=== PATIENT | male | born 1940 | race Caucasian/White ===

== ENCOUNTER 2017-10-08 15:48 | Inpatient (IN) ==
[2017-10-08] MEDS ORDERED: Aspirin 81 MG TAB.CHEW PO STA (15:58)
--- NOTE | 2017-10-08 16:02 | Emergency Department Note ---
Disposition Clinical Impression: Elevated troponin, EKG abnormality Chest pain Qualifiers: Chest pain type: unspecified Qualified Code(s): R07.9 - Chest pain, unspecified Disposition: Admitted As Inpatient Condition: Good Time of Disposition: 19:01 Chest Pain HPI - General Chief Complaint: ED Chest Pain Stated Complaint: Elevated trop, CP x4 days Time Seen by Provider: 10/08/17 15:57 Source: patient Limitations: no limitations Vital Signs Reviewed: Yes Nursing Notes Reviewed: Yes - History of Present Illness HPI Narrative: Patient had chest pain 4 days ago in the center of his chest. Did not radiate anywhere. He also had a GI upset at that time. States that [place] States that that has since resolved. His chest pain resolved on its own as well. He has not had chest pain and over a day. However [facility] was found to have an elevated troponin and ST elevation noted in anterior septal leads. He was sent here for further evaluation. Severity scale (1-10): 0 - Related Data Home Medications Medication Instructions Recorded Confirmed No Known Home Drugs 10/08/17 10/08/17 Allergies Allergy/AdvReac Type Severity Reaction Status Date / Time Penicillins [PCN] AdvReac Rash Verified 10/08/17 16:57 All systems ED: reviewed and negative except as stated. Constitutional: Denies: fever, chills ENT ED: Denies: congestion Cardiovascular: Denies: chest pain, palpitations, syncope Respiratory: Denies: cough, dyspnea Gastrointestinal: Reports: nausea (Previously not today.), vomiting (Previously not today.), diarrhea (Previously noted.). Denies: abdominal pain Genitourinary: Denies: urgency, dysuria, frequency Musculoskeletal: Denies: back pain, neck pain Integumentary: Denies: rash, abrasion Neurological: Denies: headache, weakness Chest Pain PMH - Past Medical History Medical history: Reports: no medical history Psychiatric history: Reports: no psych history - Social History Smoking Status: Former smoker Alcohol use: Reports: none Drug use: Reports: none Physical Exam - General Limitations: no limitations General appearance: alert, in no apparent distress - Head Head exam: atraumatic, normocephalic, normal inspection - Eye Eye exam: Present: normal appearance, PERRL, EOMI - ENT ENT exam: normal exam, normal oropharynx, mucous membranes moist - Neck Neck exam: Present: normal inspection, full ROM, trachea midline - Chest Chest inspection: Present: normal inspection, symmetric chest wall rise - Respiratory Respiratory exam: Present: normal lung sounds bilaterally. Absent: respiratory distress, accessory muscle use - Cardiovascular Cardiovascular exam: Present: regular rate, normal rhythm, normal heart sounds - Abdominal Exam Abdominal exam: Present: soft, Non-Tender. Absent: tenderness, distention, guarding, rebound, rigidity - Extremities Exam Extremities exam: Present: normal inspection, full ROM, normal capillary refill. Absent: tenderness, pedal edema - Back Exam Back exam: Present: normal inspection, full ROM. Absent: tenderness - Neurological Exam Neurological exam: Present: alert, oriented X3 - Psychiatric Psychiatric exam: Present: normal affect, normal mood - Skin Skin exam: Present: warm, dry, intact, normal color. Absent: rash, cyanosis, diaphoresis, erythema Course Course Narrative: Male patient presenting to the emergency department after being sent [place] [facility] for an elevated troponin and possible anterior septal infarct. Patient had an elevated troponin at the [facility]. His troponin was 0.21. Patient states 4 days ago he had chest pain in the center of his chest. It does not radiate anywhere. He has no cardiac history previously. He thought this was possibly from a GI illness as he ate some when he states it is bad food at the [place]. He had some nausea vomiting and diarrhea at that time. He states that [facility] to his stating he needed to go. He states that he has not had any chest pain in over 48 hours. He denies any shortness of breath. He states he feels well at this time. EKG does show a possible anterior septal wall infarct however he does have Q waves this area. I believe this is possibly a reperfusion injury. His previous EKG does not have this on it which was dated 06/06/2016. Again patient is not having chest pain at this time. He denies any symptoms currently. We did speak with Dr. Gutierrez with cardiology who advises admit to the hospital and start patient on heparin drip. - Reevaluation(s) Reevaluation #1: Patient does report increased congestion. States he has a runny nose since he has been here. Also some mild. Orbital edema since he has been here. He thinks that he may be allergic to something in the air. We will provide patient with a Claritin and get a chest x-ray. - Consultations Consultation #1: Dr Leyva accepted Pt in stable condition. Time: 18:18 Vital Signs Temperature 98.1 F 10/08/17 15:50 Pulse Rate 73 10/08/17 15:50 Respiratory Rate 18 10/08/17 15:50 Blood Pressure 154/120 10/08/17 15:50 O2 Sat by Pulse Oximetry 96 10/08/17 15:50 Temperature 98.1 F 10/08/17 15:50 Pulse Rate 80 10/08/17 19:20 Respiratory Rate 20 10/08/17 19:20 Blood Pressure 159/113 10/08/17 19:20 O2 Sat by Pulse Oximetry 92 10/08/17 19:20 Oxygen Delivery Oxygen Delivery Nasal Cannula Chest Pain - Medical Records Medical records reviewed: Yes I reviewed the patient's medical records. - Lab Data Lab results reviewed: Yes I reviewed the patient's lab results. Result diagrams: 10/08/17 16:46 Lab Results 10/08/17 10/08/17 10/08/17 Range/Units 16:16 16:46 16:46 WBC 5.9 (4.3-11.1) K/mcL RBC 3.86 L (4.19-5.50) M/mcL Hgb 12.9 (12.9-16.9) g/dL Hct 37.4 L (37.5-50.1) % MCV 96.9 (83.0-100.0) fL MCH 33.4 H (28.0-33.3) pg MCHC 34.5 (31.6-35.5) g/dL RDW 13.0 (11.5-14.5) % Plt Count 154 (140-400) K/mcL MPV 10.0 (9.4-12.4) fL PT 11.7 (9.4-12.1) Seconds INR 1.0 Heparin Anti-Xa, Unfract 0.04 L (0.30-0.70) IU/mL Troponin I 0.16 H* (< 0.04) ng/mL - Radiology Data Radiology results reviewed: Yes I reviewed the patient's radiology results. - EKG Data EKG attestation: Yes I reviewed and interpreted this EKG. EKG results narrative: Normal sinus rhythm at a rate of 80. MT intervals 163. QRS duration is 98. QTC is 441. QTC is 477. Patient does have ST elevation in leads V1 and V2 and V3. There is T-wave inversion in lead V4 and V5. These were not on his previous EKG dated 06/06/2016. However the QRS complexes to have deep Q waves in these leads. This is likely secondary to a [place] several days ago. Heart Score - Score History: Highly Suspicious EKG: Significant ST-Depression Age: Greater than 65 Risk Factors: No risk factors known Troponin: 1-3x normal limit HEART Score Total: 7 Attestation Statement - Attestation Attestation: I, Yohan Martinez DO, examined this patient [id number] and my medical decision-making was reviewed with Dr. Rebecca Jimenez, Resident Physician. I agree with the documented findings, disposition and treatment plan as described except to the extent set forth below. Please see my progress notes for details.
[2017-10-08] MEDS ORDERED: *HR* Heparin 5,000 UNIT/ML VIAL IVP PRN ×2 (16:32)
[2017-10-08] MEDS ORDERED: *HR* Heparin 5,000 UNIT/ML VIAL IVP ONE (16:32)
[2017-10-08] MEDS ORDERED: Heparin 25,000 UNIT/500 ML D5W 25,000 UNIT/500 ML BAG IVC SCH (16:45)
[2017-10-08 17:06] LABS: Hematocrit 37.4 % (37.5-50.1); Hemoglobin 12.9 g/dL (12.9-16.9); Mean Corpuscular HGB Conc 34.5 g/dL (31.6-35.5); Mean Corpuscular Hemoglobin 33.4 pg (28.0-33.3); Mean Corpuscular Volume 96.9 fL (83.0-100.0); Platelet Count 154 K/mcL (140-400); Red Blood Count 3.86 M/mcL (4.19-5.50)
[2017-10-08 17:14] LABS: Heparin anti-factor XA UFH 0.04 IU/mL (0.30-0.70)
[2017-10-08 17:15] LABS: Prothrombin Time 11.7 Seconds (9.4-12.1)
--- NOTE | 2017-10-08 18:39 | Emergency Department Note ---
Disposition Clinical Impression: Elevated troponin, EKG abnormality Disposition: Admitted As Inpatient Condition: Fair Forms: ED Satisfaction Letter Time of Disposition: 18:39 General Adult HPI - General Chief complaint: ED Chest Pain Stated complaint: Elevated trop, CP x4 days Time Seen by Provider: 10/08/17 15:57 Source: patient Limitations: no limitations - History of Present Illness Pain Scale: 0 - Related Data Home Medications Medication Instructions Recorded Confirmed No Known Home Drugs 10/08/17 10/08/17 Allergies Allergy/AdvReac Type Severity Reaction Status Date / Time Penicillins [PCN] AdvReac Rash Verified 10/08/17 16:57 Past Medical History - Past Medical History Medical history: Reports: no medical history Psychiatric history: Reports: no psych history - Social History Smoking Status: Former smoker Smokeless Tobacco Status: No Alcohol use: Reports: none Drug use: Reports: none Physical Exam - General Limitations: no limitations General appearance: alert, in no apparent distress Course Vital Signs Temperature 98.1 F 10/08/17 15:50 Pulse Rate 73 10/08/17 15:50 Respiratory Rate 18 10/08/17 15:50 Blood Pressure 154/120 10/08/17 15:50 O2 Sat by Pulse Oximetry 96 10/08/17 15:50 Temperature 98.1 F 10/08/17 15:50 Pulse Rate 79 10/08/17 17:39 Respiratory Rate 18 10/08/17 17:39 Blood Pressure 155/119 10/08/17 17:39 O2 Sat by Pulse Oximetry 92 10/08/17 17:39 Oxygen Delivery Oxygen Delivery Room Air Medical Decision Making - Lab Data Result diagrams: 10/08/17 16:46 Lab Results 10/08/17 10/08/17 10/08/17 Range/Units 16:16 16:46 16:46 WBC 5.9 (4.3-11.1) K/mcL RBC 3.86 L (4.19-5.50) M/mcL Hgb 12.9 (12.9-16.9) g/dL Hct 37.4 L (37.5-50.1) % MCV 96.9 (83.0-100.0) fL MCH 33.4 H (28.0-33.3) pg MCHC 34.5 (31.6-35.5) g/dL RDW 13.0 (11.5-14.5) % Plt Count 154 (140-400) K/mcL MPV 10.0 (9.4-12.4) fL PT 11.7 (9.4-12.1) Seconds INR 1.0 Heparin Anti-Xa, Unfract 0.04 L (0.30-0.70) IU/mL Troponin I 0.16 H* (< 0.04) ng/mL Attestation Statement - Attestation Attestation: I, Yohan Martinez DO, examined this patient [id number] and my medical decision-making was reviewed with Dr. Rebecca Jimenez, Resident Physician. I agree with the documented findings, disposition and treatment plan as described except to the extent set forth below. Please see my progress notes for details. 76-year-old male presents emergency room for evaluation of chest pain 4 days ago. He is seen at the [facility] night did an EKG and troponin at that facility that were both elevated. Troponin came back at 0.210. EKG showed ST segment elevation in leads V2 and V3 with a biphasic T-wave presentation. These T waves were present in leads 23 aVF and V1 V2 V3 V4. Patient has not having any chest pain at this time. He did not receive any intervention at the [facility]. Currently because of the lack of chest pain the patient is not an acute STEMI. He does have what looks like either reperfusion waves versus ST segment elevation in the septal leads. The environmental engineer Dr. James Gutierrez was contacted immediately and review the EKGs from the [facility] as well as the repeat EKG at our facility. He agreed at this time that the patient should be anticoagulated and medically managed in the hospital setting considering he does have no chest pain. Labs reviewed from the outside facility patient denied any GI bleed or history of ulcerative issues. Patient will be provided a full aspirin and heparin drip will be started. Labs were repeated including a troponin but otherwise no other labs were needed this time. Disposition will be admission once the full workup and treatment course are established. Patient does not require nitroglycerin or acute intervention at this time. See detailed documentation the physical exam, medical intervention, medical decision-making and disposition in the resident physician's note. No critical care applied to the patient's treatment course at this time. 1535 Patient has remained chest pain-free throughout the treatment course here. Repeat troponin shows a score of 0.16. No other acute issues this time. Heparin drip was started. Patient will be admitted for definitive management. The hospitalist Dr. adamson reviewed the case as well as a consultation cardiology is comfortable admitting the patient this time for definitive management. No other acute concerns or issues noted. Patient is stable at the time of admission.
[2017-10-08] MEDS ORDERED: Loratadine 10 MG TABLET PO SCH (19:00)
[2017-10-08] MEDS ORDERED: Loratadine 10 MG TABLET PO STA (19:13)
[2017-10-08] MEDS ORDERED: Naloxone 0.4 MG/ML INJ IVP PRN (19:55)
[2017-10-08] MEDS ORDERED: Nitroglycerin 0.4 MG TAB.SUBL SL PRN (20:06)
[2017-10-08] MEDS ORDERED: Acetaminophen 325 MG TABLET PO PRN (20:06)
[2017-10-08 21:26] LABS: Calcium 8.8 mg/dL (8.6-10.3); Potassium 3.5 mEq/L (3.5-5.1)
[2017-10-08] MEDS ORDERED: hydrALAZINE 25 MG TABLET PO PRN (22:20)
--- NOTE | 2017-10-08 22:30 | Internal Med History&Physical ---
Date of Encounter: 10/09/17 Time of Encounter: 22:00 Internal Medicine - H&P: HPI Chief complaint: Intermittent midsternal chest pain of 4 days duration History of present illness: Mr. Cruz is a 76 year old male with no significant pmh presenting with complaints of intermittent midsternal chest pain of 4 days duration. Patient says he was at [place] with his this past sunday and had some steak there. Afterwards he experienced a midsternal chest pain that felt like a soreness in his chest that lasted about 7 minutes. Pain resolved on its own, but has been returning intermittently every day since. He experienced a recurrence of the chest pain yesterday evening and he felt like it was much worse than the previous episodes. Pain is relieved by taking deep breaths and he took some baking soda because he thought it was acid reflux. He denies any other acute symptoms such as fevers, chills, SOB [facility] he had an elevated troponin of 0.[address] segment elevation in leads V2 and V3 and he was sent to the ER. In the ER, he was started on a heparin drip and cardiology was consulted who agreed with anticoagulation. Past Med Surg Social Fam HX - Past Medical History Medical history: other Additional medical history: hernia Psychiatric history: no psych history - Past Surgical History Surgical History: no surgical history Additional surgical history: nasal surgery - Social History Smoking Status: Former smoker Smokeless Tobacco Status: No Alcohol use: none Drug use: none Internal Medicine - H&P: Meds No Known Home Drugs 10/08/17 [History] 3 Allergy/AdvReac Type Severity Reaction Status Date / Time Penicillins [PCN] AdvReac Rash Verified 10/08/17 16:57 All Systems PM: A 10-system review of systems was performed and is negative for pertinent findings except as documented above in the HPI. - Constitutional Constitutional: no chills, no fever(s), no night sweats - EENT Eyes: no change in vision, no discharge, no pain, no photophobia Ears: no ear discharge, no ear pain, no tinnitus Nose, mouth and throat: no dysphagia, no nasal discharge, no neck pain, no sore throat - Cardiovascular Cardiovascular ROS IM: chest pain, no diaphoresis, no dyspnea, no lightheadedness, no palpitations, no syncope - Respiratory Respiratory: no cough, no dyspnea, no wheezing, no excessive phlegm production - Gastrointestinal Gastrointestinal: no abdominal pain, no diarrhea, no hematemesis, no hematochezia, no melena, no nausea, no vomiting - Musculoskeletal Musculoskeletal ROS IM: no numbness, no tingling - Integumentary Integumentary IM: no rash, no unusual bruising - Neurological Neurological ROS: no confusion, no convulsions, no focal weakness, no numbness, no tingling, no tremor(s) - Hematologic/Lymphatic Hematologic/Lymphatic: no easy bruising - Constitutional Vitals: Temp Pulse Resp BP Pulse Ox 97.9 F 80 18 171/101 95 10/08/17 20:47 10/08/17 20:47 10/08/17 20:47 10/08/17 20:47 10/08/17 20:47 - Head Head exam: Present: atraumatic, normocephalic - Eye Eye exam: Present: PERRL, conjuntiva pink, sclera anicteric Pupils: Present: PERRL - Neck Neck exam general surgery: Present: supple, trachea midline. Absent: lymphadenopathy - Respiratory Respiratory exam: Present: CTAB. Absent: accessory muscle use, rales, rhonchi, wheezes - Cardiovascular Cardiovascular exam: Present: RRR, +S1, +S2. Absent: diastolic murmur, gallop, rubs, systolic murmur - GI/Abdominal GI/Abdominal exam: Present: normal bowel sounds, soft, no peritoneal signs. Absent: distended, tenderness - Extremities Exam Extremities exam: Present: warm, radial pulses palpable and symmetrical. Absent : calf tenderness, cyanotic, pedal edema - Neurological Exam Neurological exam: Present: CN II-XII intact, oriented X3, no focal deficits. Absent: pronater drift, facial droop, speech deficit - Skin Skin exam: Present: dry, intact Internal Med - H&P Results - Labs CBC & Chem 7: 10/09/17 00:26 10/09/17 00:26 Labs: BMP 10/08/17 20:42 Sodium 140 Potassium 3.5 Chloride 104 Carbon Dioxide 28 BUN 25 H Creatinine 1.54 H Glucose 95 Calcium 8.8 Cardiac Enzymes 10/08/17 Range/Units 20:42 Troponin I 0.13 H* (< 0.04) ng/mL - Assessment and plan (1) Acute coronary syndrome Current Visit: Yes Status: Acute Assessment and plan: Pt complains of chest pain intermittently for 4 days and was found to have ST segment elevation on EKG with elevated troponins. He is on ACS protocol with full dose anticoagulation with heparin drip, asprin, plavix, beta justin junito inhibitor and nitroglycerin PRN. Trend troponins. Obtain 2D echo in am. Cardiology to consult. (2) Chest pain Current Visit: Yes Status: Acute Assessment and plan: See plan for acute coronary syndrome Qualifiers: Chest pain type: unspecified Qualified Code(s): R07.9 - Chest pain, unspecified (3) Hypertension Current Visit: Yes Status: Acute Assessment and plan: On lisinopril, beta blockers and hydralazine PRN Qualifiers: Qualified Code(s): I10 - Essential (primary) hypertension (4) DVT prophylaxis Current Visit: Yes Status: Acute Assessment and plan: On a heparin drip - Time Spent With Patient Total time spent is greater than 50% in coordination of care (as documented) at patient's floor/unit and/or counseling patient:
[2017-10-09 01:00] LABS: Basophils % 0.6 %; Eosinophils # 0.6 K/mcL (0.0-0.6); Eosinophils % 8.8 %; Hematocrit 37.6 % (37.5-50.1); Hemoglobin 12.8 g/dL (12.9-16.9); Immature Granulocytes % 0.2 % (0-4); Lymphocytes # 1.9 K/mcL (0.6-4.6); Lymphocytes % 30.1 %; Mean Corpuscular Hemoglobin 33.3 pg (28.0-33.3); Mean Corpuscular Volume 97.9 fL (83.0-100.0); Mean Platelet Volume 10.5 fL (9.4-12.4); Monocytes # 0.6 K/mcL (0.0-1.3); Monocytes % 9.3 %; Neutrophils # 3.2 K/mcL (1.6-8.9); Platelet Count 151 K/mcL (140-400); Red Blood Count 3.84 M/mcL (4.19-5.50)
[2017-10-09 01:18] LABS: Calcium 8.8 mg/dL (8.6-10.3); Chol/HDL Ratio 2.6 (0-4.9); Magnesium 2.1 mg/dL (1.6-2.6); Phosphorous 2.7 mg/dL (2.7-4.5); Potassium 3.9 mEq/L (3.5-5.1)
[2017-10-09 01:36] LABS: Platelet Estimate Normal (Normal); Reactive Lymphocytes Present (Not Present)
[2017-10-09] MEDS ORDERED: Lisinopril 20 MG TABLET PO SCH (09:00)
[2017-10-09] MEDS ORDERED: Aspirin Enteric Coated 81 MG Tablet PO SCH (09:00)
[2017-10-09] MEDS ORDERED: Aspirin 81 MG TAB.CHEW PO SCH (09:00)
--- NOTE | 2017-10-09 09:52 | Cardiology Consult Note ---
<Shiv Cortez R - Last Filed: 10/09/17 09:49> Date of Encounter: 10/09/17 Time of Encounter: 09:49 Assessment and Plan (1) MICHELLE (acute kidney injury) Current Visit: Yes Status: Acute Peak troponin at [place] 0.2. At [facility] 0.16, 0.13, 0.15, 0.12. On heparin gtt. Intermittent chest pain since Sunday, mostly after meals. Reports exertion makes it better, walked 1-2 miles yesterday without chest pain. Symptoms are atypical, but EKGs show significant ischemic changes compared to 2016. No cardiac hx. TTE to evaluate structure and function. Accelerated HTN--now improved. Creatinine 1.61 today, was 1.54 yesterday and 1.75 at [place]. Per pt, no hx of CKD. Started IV fluids. Given EKG changes and troponin elevation, recommend LHC--R/B/A discussed. Pt prefers to get echo results first, then rediscuss LHC vs medical management. ASA, Statin, BB started. Will stop Plavix for now until a final plan is coordinated. Received one dose. Continue heparin gtt. Continue to follow. (2) Hypertension Current Visit: Yes Status: Acute No prior hx. BP 154/120 on admission, as high as 170s systolic. Currently better controlled. BB started. ACEi held given renal dysfunction. Qualifiers: Hypertension type: essential hypertension Qualified Code(s): I10 - Essential (primary) hypertension Discussion w patient/family: The assessment and plan as outlined above was discussed with the patient and/or family members who expressed understanding and agreement. All questions were answered. Thank you for involving us in the care of your patient. Please call with any questions. I will discuss all the above with Dr. Solano and make changes as necessary. History of Present Illness Consult date: 10/09/17 Consult reason: NSTEMI Chief complaint: chest pain History of present illness: Mr. Cruz is a 76 year old male with no significant PMH that presented with complaints of intermittent midsternal chest pain of 4 days duration. States he was at fair with his Sunday and ate steak. Afterwards he experienced midsternal chest pain that felt like soreness, lasted about 7 minutes. Pain resolved on its own, but has been returning intermittently. He experienced a recurrence of the chest pain yesterday evening and he felt like it was much worse than the previous episodes, radiated to bilateral shoulders. Pain is relieved by taking deep breaths and he took some baking soda because he thought it was acid reflux. He denies any other acute symptoms such as fevers, chills, dyspnea. He states the pain usually occurs after meals and actually improves with exertion or deep breaths. Associated diaphoresis. Of note, he lives in [place], is vacationing in the area to visit family. He presented to the [place] today and it was noted he had an elevated troponin of 0.2 and EKG changes. Troponins at [facility] 0.16, 0.13, 0.15, 0.12. Cardiology consulted for further recs. Pt is chest pain free currently. Creatinine 1.61. Past Med Surg Social Fam HX - Past Medical History Medical history: other Additional medical history: hernia Psychiatric history: no psych history - Past Surgical History Surgical History: no surgical history Additional surgical history: nasal surgery - Social History Smoking Status: Former smoker Smokeless Tobacco Status: No Alcohol use: none Drug use: none Medications and Allergies No Known Home Drugs 10/08/17 [History] 3 Allergy/AdvReac Type Severity Reaction Status Date / Time Penicillins [PCN] AdvReac Rash Verified 10/08/17 16:57 All Systems Review: The remainder of the systems were reviewed and are negative - Cardiovascular Cardiovascular: as per HPI, diaphoresis, radiating jaw, neck or arm pain Physical Examination Vital Signs, Last 4 Hours Temp Pulse Resp BP Pulse Ox 10/09/17 07:28 98.4 F 66 18 135/86 95 Vital Signs Temp Pulse Resp BP Pulse Ox 10/09/17 07:28 98.4 F 66 18 135/86 95 10/09/17 04:22 97.9 F 66 18 171/109 96 10/09/17 00:40 97.9 F 66 18 147/90 93 10/08/17 20:47 97.9 F 80 18 171/101 95 10/08/17 19:42 98.2 F 20 154/95 10/08/17 19:20 80 20 159/113 92 10/08/17 18:51 77 20 145/90 93 10/08/17 17:39 79 18 155/119 92 10/08/17 16:01 96 10/08/17 15:50 98.1 F 73 18 154/120 96 Intake and Output 10/08/17 10/09/17 10/09/17 23:59 07:59 15:59 Intake Total 147 / 147 142 / 142 Output Total 375 / 375 Balance 147 / 147 -233 / -233 Intake: IV Fluids 147 / 147 142 / 142 Heparin 25,000 UNIT/500 ML D5W 147 / 147 142 / 142 25,000 unit In 500 ml @ 12 UNIT /KG/HR 19.051 mls/hr IVC .Q24H ASHVIN Rx#:[id number] Output: Urine 375 / 375 Other: Meal NPO # Voids 1 Weight 74.7 kg Patient Weight 10/09/17 23:59 Weight 74.7 kg General: Conversant, No Apparent Distress HEENT: Atraumatic, Normocephaly, Mucus Membranes Moist Neck: No JVD, Normal carotid pulses Cardiac: Reg Rate and Rhythm, Normal S1 and S2, No Murmur Lungs: Normal Breath Sounds, No Wheeze, Rales, Rhonchi Neuro: Alert and responsive, No focal deficits noted Abdomen: Soft, Non-Tender Skin: No rashes noted on visualized skin Musculoskeletal: No Chest Wall Tenderness Extremities: No Clubbing, No Cyanosis, No Edema, Normal Pulses Results 10/09/17 00:26 10/09/17 00:26 Lab Results 10/08/17 10/08/17 10/09/17 20:42 20:42 00:26 WBC Hgb Hct Plt Count Sodium 140 Potassium 3.5 Chloride 104 Carbon Dioxide 28 BUN 25 H Creatinine 1.54 H Glucose 95 Calcium 8.8 Magnesium Troponin I 0.13 H* 0.15 H* 10/09/17 10/09/17 10/09/17 00:26 00:26 07:30 WBC 6.3 Hgb 12.8 L Hct 37.6 Plt Count 151 Sodium 140 Potassium 3.9 Chloride 105 Carbon Dioxide 29 BUN 24 H Creatinine 1.61 H Glucose 106 H Calcium 8.8 Magnesium 2.1 Troponin I 0.12 H* Short CBC 10/09/17 10/08/17 Range/Units 00:26 16:46 WBC 6.3 5.9 (4.3-11.1) K/mcL Hgb 12.8 L 12.9 (12.9-16.9) g/dL Hct 37.6 37.4 L (37.5-50.1) % Plt Count 151 154 (140-400) K/mcL Neutrophils # 3.2 (1.6-8.9) K/mcL BMP 10/09/17 10/08/17 Range/Units 00:26 20:42 Sodium 140 140 (136-145) mEq/L Potassium 3.9 3.5 (3.5-5.1) mEq/L Chloride 105 104 (98-107) mEq/L Carbon Dioxide 29 28 (23-29) mEq/L BUN 24 H 25 H (8-23) mg/dL Creatinine 1.61 H 1.54 H (0.70-1.30) mg/dL Glucose 106 H 95 (70-105) mg/dL Calcium 8.8 8.8 (8.6-10.3) mg/dL Cardiac Enzymes 10/09/17 10/09/17 10/08/17 Range/Units 07:30 00:26 20:42 Troponin I 0.12 H* 0.15 H* 0.13 H* (< 0.04) ng/mL 10/08/17 Range/Units 16:16 Troponin I 0.16 H* (< 0.04) ng/mL Impressions Chest X-Ray 10/08/17 18:57 IMPRESSION: Questionable left hilar soft tissue fullness raises concern for lymphadenopathy. Chest CT with contrast recommended for further evaluation. Background emphysematous changes noted. No acute cardiopulmonary process. Findings sent to the [facility] to be communicated to the clinical service. D/ / Valente Hoffman MD / Valente Hoffman MD Interpreting Provider: Valente Hoffman MD Active Medications Acetaminophen (Tylenol) 650 mg PO Q6HR PRN PRN Reason: Pain Stop: 04/09/18 20:07 Aspirin (Aspirin Ec) 81 mg PO DAILY ASHVIN Stop: 04/10/18 09:01 Last Admin: 10/09/17 09:13 Dose: Not Given Atorvastatin Calcium (Lipitor) 40 mg PO HS ASHVIN Stop: 04/09/18 21:01 Last Admin: 08/06/18 22:42 Dose: 40 mg Heparin Sodium (Porcine) (Heparin) 4,000 unit IVP Q6HR PRN PRN Reason: SEE COMMENTS Stop: 04/09/18 16:33 Heparin Sodium (Porcine) (Heparin) 2,000 unit IVP Q6H PRN PRN Reason: SEE COMMENTS Stop: 04/09/18 16:33 Last Admin: 10/09/17 01:40 Dose: 2,000 unit Hydralazine HCl (Hydralazine) 25 mg PO Q8HR PRN PRN Reason: Blood Pressure - High Stop: 04/09/18 22:21 Last Admin: 10/09/17 05:56 Dose: 25 mg Heparin Sodium/Dextrose (Heparin 25,000 Unit/500 Ml D5w) 25,000 unit in 500 mls @ 19.051 mls/hr IVC .Q24H ASHVIN; 12 UNIT/KG/HR PRN Reason: Protocol Stop: 04/09/18 16:46 Last Titration: 10/09/17 08:08 Dose: 13.99 unit/kg/hr, 22.226 mls/hr Sodium Chloride (0.9 % Sodium Chloride) 1,000 mls @ 50 mls/hr IVC .Q20H ASHVIN Stop: 04/10/18 10:01 Metoprolol Tartrate (Lopressor) 25 mg PO BID ASHVIN Stop: 04/09/18 21:01 Last Admin: 10/09/17 09:12 Dose: 25 mg Naloxone HCl (Narcan) 0.4 mg IVP Q2MIN PRN PRN Reason: SEE COMMENTS Stop: 04/09/18 19:56 Nitroglycerin (Nitroglycerin) 0.4 mg SL Q5MIN PRN PRN Reason: Chest Pain Stop: 04/09/18 20:07 - EKG Interpretation EKG results cardiology: personally reviewed (SR, anterolateral ischemia, diffuse ST changes), other (12 hr tele AVG HR 65) Consult Discharge Plan - Plan [facility]errals: [facility] [Primary Care Provider] - <Farzana Solano - Last Filed: 10/09/17 15:46> Date of Encounter: 10/09/17 - Attending Attestation I examined this patient and my medical decision-making was reviewed with the INSPECTOR PACKAGER. I agree with the documented findings, disposition and treatment plan as described. Please see Event Note dictated today. Assessment and Plan Discussion w patient/family: The assessment and plan as outlined above was discussed with the patient and/or family members who expressed understanding and agreement. All questions were answered. Thank you for involving us in the care of your patient. Please call with any questions. History of Present Illness History of present illness: Mr. Cruz is a 76 year old male All Systems Review: The remainder of the systems were reviewed and are negative Results 10/09/17 00:26 10/09/17 00:26 Lab Results 10/08/17 10/08/17 10/09/17 20:42 20:42 00:26 WBC Hgb Hct Plt Count Sodium 140 Potassium 3.5 Chloride 104 Carbon Dioxide 28 BUN 25 H Creatinine 1.54 H Glucose 95 Calcium 8.8 Magnesium Troponin I 0.13 H* 0.15 H* 10/09/17 10/09/17 10/09/17 00:26 00:26 07:30 WBC 6.3 Hgb 12.8 L Hct 37.6 Plt Count 151 Sodium 140 Potassium 3.9 Chloride 105 Carbon Dioxide 29 BUN 24 H Creatinine 1.61 H Glucose 106 H Calcium 8.8 Magnesium 2.1 Troponin I 0.12 H*
[2017-10-09] MEDS ORDERED: 0.9 % Sodium Chloride 1,000 ML IVC SCH ×2 (10:00→14:49)
--- NOTE | 2017-10-09 10:10 | Internal Med Progress Note ---
<Kasia Birmingham - Last Filed: 10/09/17 14:53> Hospitalist Progress Note - Encounter Date of Encounter: 10/09/17 Time of Encounter: 10:06 - Subjective Interval History: 76 y/o M with no known medical history admitted for chest pain and he had another episode of chest pain this morning after taking morining medications and resolved after a few minutes. He has attributed symptoms to acid reflux as it started with diarrhea after eating state fair food . Denies palpations, shortness of breath, pedal edema or nausea, vomiting, diarrhea since admitted. - Exam Vitals: Temp Pulse Resp BP Pulse Ox 98.4 F 66 18 135/86 95 10/09/17 07:28 10/09/17 07:28 10/09/17 07:28 10/09/17 07:28 10/09/17 07:28 Exam: General : pleasant male in no acute distress, A&Ox3 Cardiac: RRR no murmurs or gallop Respiratory: CTAB no wheeze or rales Abdomen: Soft, not distended, no tenderness, no masses or organomegaly Extremities: pulses intact, no pedal edema - Assessment and Plan (1) Acute coronary syndrome Status: Acute Assessment and Plan: 76 y/o M with no known medical history admitted for chest pain with atypical symptoms but with elevated troponins and EKG changes concerning for NSTEMI. Cardiology consulted and appreciate their recommendations: - Echo done today with EF 40% and moderate pulmonary hypertension. - Left heart cath recommended - will hydrate with IVF to treat elevated creatinine - possibly due tomorrow if patient amenable - continue NPO - continue ASA and metoprolol - hold lisinopril - continue heparin drip - nitroglycerin PRN (2) Chest pain Status: Acute Assessment and Plan: see plan for ACS (3) MICHELLE (acute kidney injury) Status: Acute Assessment and Plan: Elevated creatinine without a baseline lab to compare to. I suspect some level of chronicity but unable to diagnose. Creatinine today at 1.61 from 1.54 from yesterday. - hold Lisinopril - start acetyicysteine - gentle hydration with IVF All to prepare for contrast in possible Left Heart Cath tomorrow (4) Hypertension Status: Acute Assessment and Plan: No history of hypertension but elevated on admission up to 171/101 - continue to monitor - hold Lisinopril - Hydralazine PRN DVT Prophylaxis: on heparin drip - Time Spent with Patient Total time spent is greater than 50% in coordination of care (as documented) at patient's floor/unit and/or counseling patient: less than 15 minutes Internal Medicine: Result - Labs CBC & Chem 7: 10/09/17 00:26 10/09/17 00:26 Labs: Short CBC 10/09/17 Range/Units 00:26 WBC 6.3 (4.3-11.1) K/mcL Hgb 12.8 L (12.9-16.9) g/dL Hct 37.6 (37.5-50.1) % Plt Count 151 (140-400) K/mcL Neutrophils # 3.2 (1.6-8.9) K/mcL BMP 10/08/17 10/09/17 20:42 00:26 Sodium 140 140 Potassium 3.5 3.9 Chloride 104 105 Carbon Dioxide 28 29 BUN 25 H 24 H Creatinine 1.54 H 1.61 H Glucose 95 106 H Calcium 8.8 8.8 Cardiac Enzymes 10/08/17 10/09/17 10/09/17 Range/Units 20:42 00:26 07:30 Troponin I 0.13 H* 0.15 H* 0.12 H* (< 0.04) ng/mL - ABG Interpretation ABG results: PT/INR, D-dimer PT 11.7 Seconds (9.4-12.1) 10/08/17 16:46 Consult Discharge Plan - Plan [facility]errals: [facility] [Primary Care Provider] - Prescriptions: Nitroglycerin 0.4 mg SL Q5MIN PRN #15 tab.subl PRN Reason: Chest Pain Aspirin Enteric Coated [Aspirin EC] 81 mg PO DAILY #30 tablet. Atorvastatin [Lipitor] 40 mg PO HS #30 tablet Losartan [Cozaar] 25 mg PO DAILY #30 tablet Metoprolol [Lopressor] 25 mg PO BID #60 tablet <Fracisco Maritnez - Last Filed: 10/10/17 07:57> Hospitalist Progress Note - Encounter Date of Encounter: 10/09/17 - Exam Vitals: Temp Pulse Resp BP Pulse Ox 98.3 F 63 18 158/94 95 10/09/17 11:42 10/09/17 11:42 10/09/17 11:42 10/09/17 11:42 10/09/17 11:42 - Assessment and Plan (1) Chest pain Status: Acute (2) Acute coronary syndrome Status: Acute (3) Hypertension Status: Acute (4) DVT prophylaxis Status: Acute - Time Spent with Patient Total time spent is greater than 50% in coordination of care (as documented) at patient's floor/unit and/or counseling patient: Internal Medicine: Result - Labs CBC & Chem 7: 10/09/17 00:26 10/09/17 00:26 Labs: Short CBC 10/09/17 Range/Units 00:26 WBC 6.3 (4.3-11.1) K/mcL Hgb 12.8 L (12.9-16.9) g/dL Hct 37.6 (37.5-50.1) % Plt Count 151 (140-400) K/mcL Neutrophils # 3.2 (1.6-8.9) K/mcL BMP 10/08/17 10/09/17 20:42 00:26 Sodium 140 140 Potassium 3.5 3.9 Chloride 104 105 Carbon Dioxide 28 29 BUN 25 H 24 H Creatinine 1.54 H 1.61 H Glucose 95 106 H Calcium 8.8 8.8 Cardiac Enzymes 10/08/17 10/09/17 10/09/17 Range/Units 20:42 00:26 07:30 Troponin I 0.13 H* 0.15 H* 0.12 H* (< 0.04) ng/mL - ABG Interpretation ABG results: PT/INR, D-dimer PT 11.7 Seconds (9.4-12.1) 10/08/17 16:46 - Impressions Impressions Echocardiogram 10/09/17 10:00 Impressions: LVEF 40%. Normal LV chamber size and wall thickness. Global left ventricular systolic dysfunction. Moderate left ventricular diastolic dysfunction. Trabeculated LV noted. Normal right ventricular structure and function. Mild aortic regurgitation. Mild tricuspid regurgitation. Moderate pulmonary hypertension. Estimated RVSP is 48 mmHg. Left Ventricular Wall Motion: Rest Echo Findings The apex, apical inferior, mid inferior, basal inferior, apical anterior, mid anterior, basal anterior, apical septal, mid inferior septal, basal inferior septal, apical lateral, mid anterior lateral, basal anterior lateral, mid anterior septal, mid inferior lateral, basal anterior septal and basal inferior lateral guevara were hypokinetic. Findings: Study Quality * Technically adequate exam. ECG Findings * Normal sinus rhythm. Left Ventricle * LVEF 40%. * Normal LV chamber size and wall thickness. * Global left ventricular systolic dysfunction. * Moderate left ventricular diastolic dysfunction. * Trabeculated LV noted. Right Ventricle * Normal right ventricular structure and function. Left Atrium * Normal left atrial size. Right Atrium * Normal right atrial size. Aortic Valve * Trileaflet aortic valve. * Mildly calcified aortic valve leaflets. * Mild aortic regurgitation. * No aortic stenosis. Mitral Valve * Mild mitral annular calcification * Trace mitral regurgitation. * No mitral stenosis. Tricuspid Valve * Normal tricuspid valve structure. * Mild tricuspid regurgitation. * Moderate pulmonary hypertension. * Estimated RVSP is 48 mmHg. * Estimated RA pressure is 5 mmHg. Pulmonic Valve * Normal pulmonic valve structure and function. * No pulmonic regurgitation. Aorta * Normally sized aortic root. Pericardium * The pericardium appears normal. IVC * Normal IVC dimensions and inspiratory collapse. Pulmonary Artery * Normal visualized portions of the main pulmonary artery. - Attending Attestation I examined this patient and my medical decision-making was reviewed with the Resident Physician Dr. Birmingham I agree with the documented findings, disposition and treatment plan as described except to the extent set forth below. Mr. Cruz is a 76 y/o M with known PMH of HTN, HLD admitted here with acute Chest pain and NSTEMI. He did have another episode of chest pain this morning with out any new EKG changes. Denied any active CP now Gen: A, A, O x 3 Chest: Diminished BS b/l heart: S1S2+ RRR No murmurs A.p 1. Acute NSTEMI 2. Acute CP Cont Heparin gtt for now Trop started trending down cont ASA + Plavix + BB + Statin Pt was relectuant to go for LHC initially since he is worried about Kidney function I counseled him and family, educated them about contrast induce nephropathy He wants to think about going for LHC in AM on NPO after mid night IV hdyration + Acetylcysteine as renal protective Held Nephro toxic meds 3. MICHELLE vs CKD-3 No previous labs to compare seems more like CKD-3 cont close monitoring <Kasia Birmingham - Last Filed: 10/09/17 14:53> (2) Chest pain Qualifiers: Chest pain type: unspecified Qualified Code(s): R07.9 - Chest pain, unspecified (4) Hypertension Qualifiers: Hypertension type: unspecified Qualified Code(s): I10 - Essential (primary) hypertension <Fracisco Martinez - Last Filed: 10/10/17 07:57> (1) Chest pain Qualifiers: Chest pain type: unspecified Qualified Code(s): R07.9 - Chest pain, unspecified (3) Hypertension Qualifiers: Hypertension type: unspecified Qualified Code(s): I10 - Essential (primary) hypertension
[2017-10-09] MEDS ORDERED: Perflutren Lipid Microsphere 1.3 ML in 0.9 % Sodium Chloride 8.7 ML IVP ONE (10:33)
[2017-10-09 11:43] VITALS: BP 158/94
--- NOTE | 2017-10-09 13:54 | Event Note ---
Date of Encounter: 10/09/17 Time of Encounter: 13:52 - Cardiology Event Note Please let this serve as an Addendum to the Cardiology Consultation note performed today by Shiv Cortez CNP. I examined this patient and my medical decision-making was reviewed with the TRAVEL MANAGER. I agree with the documented findings , disposition and treatment plan as described. I have been unable to sign the consultation note due to IT issues. Mr. Cruz presents to [facility] with chest pain after eating yesterday. He is visiting from out of town. Denies prior cardiac history. He is comfortable at bedside and presently chest pain free. Vital signs reviewed - hemodynamically stable. Labs reviewed - elevated troponin and renal dysfunction. CXR reviewed - possible lymphadenopathy. PLAN: 1. Elevated Troponin: Presentation and objective data (troponin and abnormal ECG) are concerning for NSTEMI. This was discussed with the patient and . LHC was recommended with consideration for renal function. However, the patient is hesitant to proceed and would like results of Echo before making decision. We will hydrate his kidneys overnight and await echo findings and discuss in AM. Will keep NPO p midnight except meds. 2. Renal dysfunction: Unknown if acute or chronic. Will hydrate kidneys in anticipation of considering LHC. 3. HTN: No prior reported history but elevated on admission. Now appears better. Holding ACEI in anticipation of considering cath in light of renal function.
[2017-10-09] MEDS ORDERED: *HR* Acetylcysteine 20% 600 MG/3 ML ORAL SYRINGE PO SCH (15:00)
--- NOTE | 2017-10-09 16:05 | Discharge Summary ---
- NOTES TO OUTPATIENT PROVIDER Notes to Outpatient Provider: Your PCP Dr. Thanh Perales , [facility] .. Ph @ [phone]. Please come back to ER if you get any chest pain, worsening shortness of breath. Also please continue taking your heart medications Date of Encounter: 10/09/17 Time of Encounter: 16:03 - Discharge Diagnosis (1) NSTEMI (non-ST elevated myocardial infarction) Priority: Primary Status: Acute (2) Chest pain Priority: Primary Status: Acute Qualifiers: Chest pain type: unspecified Qualified Code(s): R07.9 - Chest pain, unspecified (3) Acute coronary syndrome Priority: Primary Status: Acute (4) Systolic CHF Priority: Secondary Status: Acute Qualifiers: Heart failure chronicity: unspecified Qualified Code(s): I50.20 - Unspecified systolic (congestive) heart failure (5) MICHELLE (acute kidney injury) Priority: Primary Status: Acute (6) Hypertension Priority: Secondary Status: Acute Qualifiers: Hypertension type: unspecified Qualified Code(s): I10 - Essential (primary ) hypertension (7) DVT prophylaxis Priority: Secondary Status: Acute Hospital course: Mr. Cruz is a 76 year old male with no significant PMH that presented with complaints of intermittent mid sternal chest pain of 4 days duration. States he was at [place] with his [place] and ate steak. Afterwards he experienced mid sternal chest pain that felt like soreness, lasted about 7 minutes. Pain resolved on its own, but has been returning intermittently. [facility] noted he had an elevated troponin of 0.2 and EKG changes. Troponins at [facility] 0.16, 0.13, 0.15, 0.12. Pt was started on Heparin gtt, ASA, Statin and BB. Cardiology consulted for further recs.His Creatinine was 1.61. So started him on IV hydration. Pt refused to go for [facility] which was recommend by Cardiology. He wanted to wait for 2 D Echo, now the echo showed LVEF 40%, global LV systolic dysfunction. I did discussed with him about Echo results along with his . I explained to him about the current critical situation which needed an immdiate attention with [facility], however pt refused to stay in the hopsital and wanted to leave AMA. He understands about the consequences, even possible . However he still decided to leave AMA, since he does not believe in all these. Of note, he lives in [place], is vacationing in the area to visit family. However I gave him prescriptions and provide my information for his PCP. Also recommended him to come back to ER if he gets chest pain / SOB. - Time Spent with Patient Total time spent providing and/or coordinating discharge services: - Discharge Medications Prescriptions: Nitroglycerin 0.4 mg SL Q5MIN PRN #15 tab.subl PRN Reason: Chest Pain Aspirin Enteric Coated [Aspirin EC] 81 mg PO DAILY #30 tablet. Atorvastatin [Lipitor] 40 mg PO HS #30 tablet Losartan [Cozaar] 25 mg PO DAILY #30 tablet Metoprolol [Lopressor] 25 mg PO BID #60 tablet Home Medications: Acetaminophen [Tylenol] 650 mg PO Q6HR PRN tablet 10/09/17 [Rx] Aspirin Enteric Coated [Aspirin EC] 81 mg PO DAILY #30 tablet. 10/09/17 [Rx] Atorvastatin [Lipitor] 40 mg PO HS #30 tablet 10/09/17 [Rx] Losartan [Cozaar] 25 mg PO DAILY #30 tablet 10/09/17 [Rx] Metoprolol [Lopressor] 25 mg PO BID #60 tablet 10/09/17 [Rx] Nitroglycerin 0.4 mg SL Q5MIN PRN #15 tab.subl 10/09/17 [Rx] Allergies/Adverse Reactions: 3 Allergy/AdvReac Type Severity Reaction Status Date / Time Penicillins [PCN] AdvReac Rash Verified 10/08/17 16:57 Date of admission: 10/08/17 20:09 Primary care physician: PCP [place] - Constitutional Vitals: Temp Pulse Resp BP Pulse Ox 98.3 F 63 18 158/94 95 10/09/17 11:42 10/09/17 11:42 10/09/17 11:42 10/09/17 11:42 10/09/17 11:42 General appearance: Present: A&O X 3, no acute distress - Head Head exam: Present: atraumatic, normal inspection - Respiratory Respiratory exam: Present: decreased breath sounds. Absent: rales, respiratory distress, rhonchi, wheezes - Cardiovascular Cardiovascular exam: Present: RRR, +S1, +S2. Absent: tachycardia - GI/Abdominal GI/Abdominal exam: Present: normal bowel sounds, soft. Absent: rebound, rigid - Extremities Exam Extremities exam: Absent: calf tenderness, pedal edema, tenderness - Back Exam Back exam: Absent: CVA tenderness (L), CVA tenderness (R) - Patient Status Disposition: Left Against Medical Advice Condition: Fair Overall status at discharge: patient is back to baseline - Discharge Instructions Follow Up With: [facility] [Primary Care Provider] - - Diet and Activity Activity: increase activity as tolerated Diet: low salt diet
--- NOTE | 2017-10-10 15:02 | Electrocardiograph Report ---
[address] [place] [address] Test Date: 2017-10-08 Pat Name: Josep Cruz Department: 104 Room: 2A63 Gender: M Online Communications Specialist: MAGDALENA : 1940 Requested By: Yohan Martinez Order Number: [id number] Reading MD: Mark Paulino Measurements Intervals [place] Rate: 80 P: 61 AR: 163 QRS: -45 QRSD: 98 T: 60 QT: 441 QTc: 477 Interpretive Statements SINUS RHYTHM WITH OCCASIONAL SUPRAVENTRICULAR PREMATURE COMPLEXES LEFT ANTERIOR FASCICULAR BLOCK ANTEROSEPTAL MYOCARDIAL INFARCTION, PROBABLY RECENT ACUTE SC Electronically Signed On 10-10-2017 15:00:46 EDT by Makr Paulino
--- NOTE | 2017-10-10 16:41 | Electrocardiograph Report ---
[address] [place] [address] Test Date: 2017-10-09 Pat Name: Josep Cruz Department: 112 Room: 2A Gender: M Automatic Clipper: : 1940 Requested By: Fracisco Martinez Order Number: [id number] Reading MD: Berny Stover Measurements Intervals [place] Rate: 61 P: 91 UT: 168 QRS: -43 QRSD: 102 T: 85 QT: 518 QTc: 522 Interpretive Statements SINUS RHYTHM MARKED LEFT AXIS DEVIATION ANTEROSEPTAL MYOCARDIAL INFARCTION, PROBABLY RECENT ACUTE OK Electronically Signed On 10-10-2017 16:39:39 EDT by Berny Stover
== END 2017-10-09 16:23 | disposition left against medical advice (07) | DRG 281 ==
LOC: EMEROO 15:48 → 2ANU 15:48
PROVIDERS: ADMIT Internal Medicine; ATTEND Internal Medicine